=== PATIENT | male | born 1960 | race African-American/Black ===

== ENCOUNTER 2016-07-23 19:19 | Emergency (ER) | payer MEDICAID ==
[~2016-07-23] VITALS: Ht 182.9 cm; Wt 76.0 kg
[~2016-07-23 19:19] MED LIST: ALBU6.7H; FLUT1DIS3; HYDR-3307 PO
[2016-07-23 19:34] VITALS: BP 136/80
[2016-07-23] MEDS ORDERED: OXYC-229 PO (20:15)
[2016-07-23] MEDS ORDERED: HYDR-3307 PO (20:15)
== END 2016-07-23 20:26 | disposition home or self-care (01) ==
LOC: ED 20:20
DX: J45.909 Unspecified asthma, uncomplicated (principal); J20.9 Acute bronchitis, unspecified; B96.89 Other specified bacterial agents as the cause of diseases classified elsewhere; J02.0 Streptococcal pharyngitis
CPT/HCPCS: 93005; 99283

== ENCOUNTER 2016-11-14 11:55 | Emergency (ER) | payer MEDICAID ==
[~2016-11-14] VITALS: Ht 182.9 cm; Wt 75.8 kg
[~2016-11-14 11:55] MED LIST changes: +OXYC-307 PO
[2016-11-14] MEDS ORDERED: ALBUTEROL SULFATE 2.5 MG/3 ML ONE (12:45)
[2016-11-14] MEDS ORDERED: ALBUTEROL/IPRATROPIUM 2.5MG/0.5MG, 3 ML NPPB ONE (13:00)
[2016-11-14 13:22] VITALS: BP 134/79
== END 2016-11-14 13:52 | disposition home or self-care (01) ==
LOC: ED 13:40
DX: J45.30 Mild persistent asthma, uncomplicated (principal); J00 Acute nasopharyngitis [common cold]; G89.29 Other chronic pain
CPT/HCPCS: 71010; 93005; 94640; 99284; J7512; J7620

== ENCOUNTER 2017-02-08 01:24 | Emergency (ER) | payer MEDICAID ==
[~2017-02-08] VITALS: Ht 182.9 cm; Wt 77.7 kg
[2017-02-08 01:26] VITALS: BP 142/84
== END 2017-02-08 03:11 | disposition home or self-care (01) ==
LOC: ED 03:00
DX: H10.233 Serous conjunctivitis, except viral, bilateral (principal)
CPT/HCPCS: 99283

== ENCOUNTER 2017-06-04 07:54 | Emergency (ER) | payer MEDICAID ==
[~2017-06-04] VITALS: Ht 182.9 cm; Wt 79.4 kg
[2017-06-04 07:57] VITALS: BP 123/70
[2017-06-04] MEDS ORDERED: KETOROLAC 30 MG/1 ML IM ONE (08:30)
[2017-06-04] MEDS ORDERED: KETOROLAC 30 MG/1 ML ONE (09:07)
== END 2017-06-04 10:13 | disposition home or self-care (01) ==
LOC: ED 10:07
DX: M25.561 Pain in right knee (principal); M25.562 Pain in left knee; M19.90 Unspecified osteoarthritis, unspecified site; J45.909 Unspecified asthma, uncomplicated; F17.210 Nicotine dependence, cigarettes, uncomplicated; G89.29 Other chronic pain; Z59.0 Homelessness
CPT/HCPCS: 73564; 96372; 99284; J1885

== ENCOUNTER 2017-07-10 20:51 | Emergency (ER) | payer MEDICAID ==
[~2017-07-10] VITALS: Ht 182.9 cm; Wt 80.0 kg
[2017-07-10 20:53] VITALS: BP 118/80
[2017-07-10] MEDS ORDERED: CEPHALEXIN 500 MG CAPSULE ONE (21:27)
[2017-07-10] MEDS ORDERED: CEPHALEXIN 500 MG CAPSULE PO ONE (21:30)
== END 2017-07-10 21:51 | disposition home or self-care (01) ==
LOC: ED 21:19
DX: B86 Scabies (principal); L73.9 Follicular disorder, unspecified; G89.29 Other chronic pain; M19.90 Unspecified osteoarthritis, unspecified site; F17.210 Nicotine dependence, cigarettes, uncomplicated
CPT/HCPCS: 99283; Q0177

== ENCOUNTER 2017-08-15 03:44 | Emergency (ER) | payer MEDICAID ==
[~2017-08-15] VITALS: Ht 182.9 cm; Wt 77.3 kg
[2017-08-15] MEDS ORDERED: OXYC-307 PO (04:16)
[2017-08-15] MEDS ORDERED: HYDR-3307 PO (04:16)
[2017-08-15 04:30] LABS: CULTURE INDICATED? YES; MICROSCOPIC AUTO
[2017-08-15 05:27] LABS: ALANINE AMINOTRANSFERASE 25 U/L (12-78); ALBUMIN 3.6 g/dL (3.4-5.0); ANION GAP 5 mmol/L (5-15); CALCIUM 8.7 mg/dL (8.5-10.1); CHLORIDE 105 mmol/L (98-107)
[2017-08-15 05:29] LABS: ALKALINE PHOSPHATASE 74 U/L (45-117); BILIRUBIN,TOTAL 0.4 mg/dL (0.2-1.0)
[2017-08-15 05:33] LABS: BASOPHILS # (AUTO) 0.05 x10^3/uL (0-0.1); BASOPHILS % (AUTO) 1 % (0-1); EOSINOPHILS # (AUTO) 0.06 x10^3/uL (0-0.4); EOSINOPHILS % (AUTO) 1 % (1-7); LYMPHOCYTES # (AUTO) 2.03 x10^3/uL (1-3.4); LYMPHOCYTES % (AUTO) 39 % (22-44); MD NO; MEAN CORPUSCULAR HEMOGLOBIN 29.6 pg (27.5-34.5); MEAN CORPUSCULAR HGB CONC 33.8 g/dL (33.2-36.2); MEAN CORPUSCULAR VOLUME 87.5 fL (81-97); MEAN PLATELET VOLUME 7.4 fL (7.4-10.4); MONOCYTES # (AUTO) 0.54 x10^3/uL (0.2-0.8); MONOCYTES % (AUTO) 10 % (2-9); NEUTROPHILS % (AUTO) 48 % (42-75); PLATELET COUNT 296 x10^3/uL (130-400)
[2017-08-15 06:16] VITALS: BP 141/84
[2017-08-15] MEDS ORDERED: OMNIPAQUE 350 MG/ML, 100ML BOTTLE ONE (06:34)
== END 2017-08-15 07:22 | disposition home or self-care (01) ==
LOC: ED 07:04
DX: K52.9 Noninfective gastroenteritis and colitis, unspecified (principal); I38 Endocarditis, valve unspecified; G89.29 Other chronic pain; J45.909 Unspecified asthma, uncomplicated; R82.99 Other abnormal findings in urine
CPT/HCPCS: 36415; 74021; 74177; 80053; 81001; 83690; 85025; 87086; 99285; Q9967

== ENCOUNTER 2018-08-10 16:20 | Emergency (ER) | payer MEDICAID ==
[~2018-08-10] VITALS: Ht 182.9 cm; Wt 82.0 kg
[2018-08-10 16:30] VITALS: BP 131/74
== END 2018-08-10 19:00 | disposition home or self-care (01) ==
LOC: ED 17:43
DX: S43.51XA Sprain of right acromioclavicular joint, initial encounter (principal); F17.210 Nicotine dependence, cigarettes, uncomplicated; X58.XXXA Exposure to other specified factors, initial encounter; Y93.89 Activity, other specified; Y92.89 Other specified places as the place of occurrence of the external cause; Y99.8 Other external cause status
CPT/HCPCS: 71046; 99283